=== PATIENT | male | born 1945 | race Asian ===

== ENCOUNTER 2019-09-08 01:50 | Emergency (ER) | payer MEDICARE, OTHER ==
--- NOTE | 2019-09-08 02:37 | ED Physician Documentation ---
PD HPI MALE - Stated complaint Stated Complaint: UNABLE TO URINATE - Chief complaint Chief Complaint: Abd Pain - History obtained from History obtained from: Patient - Additional information Additional information: Patient comes emergency department complaining of Pierre not draining for the last several hours. He states he is really not sure exactly how long it has been since his Pierre stopped draining since he always has a bag with urine attached, but over the last few hours he has began to notice increasing discomfortPatient states this is happened occasionally before. in his low abdomen/bladder area. He has a history of prostate cancer and no anal cancer and has a chronic indwelling Pierre catheter. He denies any fevers or chills recently. No prior abdominal pain. No vomiting or diarrhea. No other complaints at this time. Review of Systems Ten Systems: 10 systems reviewed and negative Constitutional: reports: Reviewed and negative Eyes: reports: Reviewed and negative Ears: reports: Reviewed and negative Nose: reports: Reviewed and negative Throat: reports: Reviewed and negative Cardiac: reports: Reviewed and negative Respiratory: reports: Reviewed and negative GI: reports: Reviewed and negative : reports: Unable to Void Skin: reports: Reviewed and negative Musculoskeletal: reports: Reviewed and negative Neurologic: reports: Reviewed and negative Psychiatric: reports: Reviewed and negative Endocrine: reports: Reviewed and negative Immunocompromised: reports: Reviewed and negative PD PAST MEDICAL HISTORY - Present Medications Home Medications: Ambulatory Orders Medication Instructions Recorded Confirmed Tiotropium [place] [Spiriva] 1 puffs INH DAILY 09/08/19 09/08/19 - Allergies Allergies/Adverse Reactions: Allergies Allergy/AdvReac Type Severity Reaction Status Date / Time No Known Drug Allergies Allergy Verified 09/08/19 02:19 PD ED PE NORMAL - Vitals Vital signs reviewed: Yes - General General: Alert and oriented X 3, Well developed/nourished, Other (Patient appears moderately uncomfortable, but otherwise in no apparent distress) - HEENT HEENT: Atraumatic, PERRL, EOMI, Moist mucous membranes - Neck Neck: Supple, no meningeal sign - Cardiac Cardiac: RRR, No murmur - Respiratory Respiratory: No respiratory distress, Clear bilaterally - Abdomen Abdomen: Soft, Other (Patient has tenderness over his low abdomen where a distended bladder dome is palpable. No rebound or guarding) - Derm Derm: Normal color, Warm and dry, No rash - Extremities Extremities: No deformity, No edema - Neuro Neuro: Alert and oriented X 3, Other (Grossly normal) - Psych Psych: Normal mood, Normal affect Results - Vitals Vitals: Vital Signs - 24 hr 09/08/19 09/08/19 09/08/19 02:00 02:05 03:20 Temperature 37.6 C H Heart Rate 100 84 Respiratory 18 18 18 Rate Blood Pressure 95/60 105/65 O2 Saturation 91 L 95 95 Oxygen O2 Source Room air PD MEDICAL DECISION MAKING - ED course Complexity details: considered differential, d/w patient ED course: Bladder scan revealed that patient had 450 cc of retained urine. Attempts were made to flush the patient's Pierre and flush seemed to entered the catheter easily, but catheter would not drain. As such, the patient's Pierre was replaced, And did drain 300 cc of urine initially with drainage ongoing at the time of dictation. Mackey the patient was stable for discharge home. We have discussed home management of symptoms, as well as usual indications for return.. Departure - Departure Disposition: 01 Home, Self Care Clinical Impression: Urinary retention Obstructed Pierre catheter Qualifiers: Encounter type: initial encounter Qualified Code(s): T83.091A - Other mechanical complication of indwelling urethral catheter, initial encounter Condition: Stable Instructions: ED Catheter Care Pierre, ED Retention Urinary Male Discharge Date/Time: 09/08/19 03:19
[2019-09-08 03:22] VITALS: BP 105/65
== END 2019-09-08 03:19 | disposition home or self-care (01) ==
LOC: ED 01:50
DX: T83.091A Other mechanical complication of indwelling urethral catheter, initial encounter (principal); Y84.6 Urinary catheterization as the cause of abnormal reaction of the patient, or of later complication, without mention of misadventure at the time of the procedure; R33.9 Retention of urine, unspecified; Z85.46 Personal history of malignant neoplasm of prostate
CPT/HCPCS: 99281; 99284

== ENCOUNTER 2023-11-16 08:00 | Outpatient (CLI) | payer MEDICARE, OTHER ==
[2023-11-16 15:42] LABS: BILIRUBIN,URINE SMALL (NEGATIVE); GLUCOSE, URINE (UA) NEGATIVE (NEGATIVE); KETONES,URINE (UA) TRACE mg/dL (NEGATIVE); LEUKOCYTE ESTERASE, URINE LARGE (NEGATIVE); NITRITE,URINE POSITIVE (NEGATIVE); OCCULT BLOOD,URINE LARGE (NEGATIVE); PH,URINE 8.5 PH (5.0-7.5); PROTEIN,URINE 100 mg/dL (NEGATIVE); UROBILINOGEN,URINE 1 (NORMAL) E.U./dL (NORMAL)
[2023-11-16 15:55] LABS: CLARITY,URINE CLOUDY (CLEAR)
[2023-11-16 16:13] LABS: AMORPHOUS SEDIMENT,UR Marked /LPF; BACTERIA,URINE Many /HPF (None Seen); SQUAMOUS EPITHELIAL CELL,UR NONE SEEN (<= Few)
== END 2023-11-16 23:58 | disposition home or self-care (01) ==
LOC: LAB.R 08:00
PROVIDERS: ATTEND Internal Medicine
DX: N36.0 Urethral fistula (principal)
CPT/HCPCS: 81001; 81003; 87077; 87086; 87181